=== PATIENT | male | born 1975 | race Caucasian/White ===

== ENCOUNTER → 2016-05-07 | Outpatient (CLI) | payer BC | LOC: CAT 07:45 | DX: M24.412 Recurrent dislocation, left shoulder (principal); M25.512 Pain in left shoulder ==

== ENCOUNTER 2020-01-30 18:51 | Emergency (ER) | payer OTHER ==
[~2020-01-30] VITALS: Ht 182.9 cm; Wt 79.4 kg
[2020-01-30 18:57] VITALS: BP 131/92
[2020-01-30] MEDS ORDERED: TRAMADOL 50 MG50 MG PO (20:05)
[2020-01-30] MEDS ORDERED: NAPROSYN500 MG PO (20:05)
== END 2020-01-30 20:51 | disposition home or self-care (01) ==
LOC: ER 18:51
DX: S63.280A Dislocation of proximal interphalangeal joint of right index finger, initial encounter (principal); W13.3XXA Fall through floor, initial encounter; Y93.89 Activity, other specified; Y92.89 Other specified places as the place of occurrence of the external cause; Y99.8 Other external cause status